=== PATIENT | female | born 1990 | race Caucasian/White ===

== ENCOUNTER 2017-03-14 23:51 | Inpatient (IN) ==
[2017-03-15] MEDS ORDERED: SODIUM CHLORIDE 0.9% 1,000 ML IV STA ×2 (00:40→02:03)
[2017-03-15 00:57] LABS: Basophils % 0.2 % (0.0-0.8); Eosinophils # 0.1 10*3/uL (0.0-0.87); Eosinophils % 0.8 % (0.00-10.9); Hematocrit 37.1 VOL% (35.7-47.0); Hemoglobin 12.7 GM/DL (12.0-16.0); Immature Granulocytes % 0.2 %; Immature Granulocytes Absolute 0.02 #; Lymphocytes # 3.1 10*3/uL (1.4-4.0); Lymphocytes % 34.4 % (21.3-54.2); Mean Corpuscular HGB Conc 34.2 GM/DL (32-36); Mean Corpuscular Hemoglobin 29 PG (27-34); Mean Corpuscular Volume 84.9 FL (87-102); Mean Platelet Volume 9.8 FL (9.6-12.0); Monocytes # 0.5 10*3/uL (0.11-0.8); Monocytes % 5.2 % (1.7-12.7); Neutrophils # 5.4 10*3/uL (1.4-7.4); Neutrophils % 59.2 % (38.7-73.9); Platelet Count 165 T/CUMM (130-400); Red Blood Count 4.37 MC/CUMM (3.8-5.5); Red Cell Distribution Width 12.4 % (9.3-17.3); White Blood Count 9.1 T/CUMM (4-12)
[2017-03-15 01:13] LABS: D-Dimer <= 0.5 MG/L FEU; INR 1.1; PT Patient Result 11.5 SECS
[2017-03-15 01:13] LABS: Barbiturates Screen,Urine Negative (Negative); Benzodiazepines Screen,Urine Negative (Negative); Cannabinoid Screen,Urine Negative (Negative); Opiate Screen,Urine Negative (Negative); Phencyclidine Screen,Urine Negative (Negative)
--- NOTE | 2017-03-15 01:13 | EKG Report ---
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
[2017-03-15 01:18] LABS: Amorphous Crystals,Urine Occasional /HPF (Few); Apearance,Urine CLOUDY (Clear); Bilirubin,Urine Negative (Negative); Blood, Urine Small mg/dL (Negative); Glucose,Urine (UA) Negative (Negative); Ketones,Urine Negative (Negative); Mucus,Urine Occasional /LPF (Occasional); Nitrite,Urine Positive (Negative); Protein,Urine 30 MG/DL; RBC,Urine 68 /HPF (0-4); Squamous Epithelial Cell,Urine Occasional /HPF (0-10); Urine Color Amber (Yellow); WBC,Urine 49 /HPF (0-6)
[2017-03-15 01:41] LABS: Alanine Aminotransferase 27 U/L (13-56); Albumin 4.1 G/DL (3.4-5.0); Alkaline Phosphatase 83 U/L (45-117); Aspartate Amino Transferase 14 U/L (0-37); Blood Urea Nitrogen 11 MG/DL (7-18); Calcium 8.8 MG/DL (8.5-10.1); Glucose 96 MG/DL (74-106); Magnesium 2.1 MG/DL (1.8-2.4); Osmolality,Calculated 279.3 MOS/KG (273-304); Potassium 3.8 MMOL/L (3.5-5.1); Sodium 141 MMOL/L (136-145)
[2017-03-15] MEDS ORDERED: SODIUM CHLORIDE 0.9% 100 ML IV ONE (01:58)
[2017-03-15] MEDS ORDERED: cefTRIAXone 1,000 MG VIAL ONE (01:58)
--- NOTE | 2017-03-15 01:58 | Emergency Department Note ---
Liana Boston Emily, am scribing for, and in the presence of, Gee Greenwood MD 01: 02. Timo Boston Charles R, MD, personally performed the services described in this documentation, ascribed by Alina Gaines in my presence, and it is both accurate and complete . Arrival - Arrival Chief Complaint: Abdominal / Flank Pain Stated Complaint: poss. kidney stones ED Nursing Triage Note: C/O DIZZINESS WITH LOW BLOOD PRESSURE AND PASSING BLOOD CLOTS EARLIER. PT WAS SEEN AT [facility]LIER THIS EVENING Mode of Arrival: Ambulatory Limitations: No Limitations Source: Patient Time Seen by Provider: 03/15/17 00:11 - History of Present Illness HPI Narrative: Pt is a 27 y/o female who came to ED with c/o dizziness and passing blood clots vaginally that started yesterday. Pt reports having full hysterectomy by robotics at the end of 2015. Pt works [employer] when she had syncopal episode earlier yesterday, but co worker caught her before fall. Pt notes vision went black during episode and low BP in the 80's. She states she went to [facility], and seen by Dr. Mendez, in which thought was kidney issue with GFR of 90. Pt's OBGYN is Dr. Aguayo, in which was cardiac rehabilitation specialist at [facility], per pt. Pt has two kids 4& 5 , and put on bed rest during pregnancies due to endometriosis which lead to hysterectomy but has not followed up with [facility] since. Pt reports having abdomen pain that started after visit with Vanessa yesterday, and having urinary frequency but plenty of output that has been red urine with clots. She states past 2 weeks when waking up to getting out of bed, she has to ease up and getting her vision focused, to keep from staying blurry. Pt describes this dizziness as "heaviness and swaying" sensation that does not go away fast, and has been chewing ice at night, more than usual. Pt states weight loss of 10 lbs in past 2 months unintentionally, but denies diet pills or new medications started recently. Onset (ago): day(s) Consistency: constant Severity: mild, moderate Severity scale (1-10): 4 Quality: other Date of Last Menstrual Period: HYST Allergies/Adverse Reactions: Allergies Allergy/AdvReac Type Severity Reaction Status Date / Time latex Allergy RASH Verified 03/14/17 23:54 Home Medications: Home Medications Medication Instructions Recorded Confirmed Type Meclizine [Antivert] 25 mg PO QID PRN #20 tablet 03/09/17 Rx Ondansetron [Ondansetron Odt] 4 mg PO Q4H PRN #20 tab.rapdis 03/09/17 Rx Review of System - Review of System 12 point system: reviewed and no additional remarkable complaints except as stated - Review of System Constitutional: Present: weight loss (10 lbs). Absent: fever Eyes: Present: vision change (no vision and/or blurred vision) Respiratory: Absent: respiratory distress Cardiovascular: Present: syncope (second). Absent: chest pain Gastrointestinal: Absent: abdominal pain Neurological: Present: other (heaviness; dizziness - doesn't go away fast ). Absent: headache, confusion Medical,Surgical,& Family Hx - Medical History Medical History: noncontributory Respiratory: History of: Asthma Musculoskeletal: History of: Back/Neck Problems - Surgical History HEENT Surgeries: Surgical HX of: Tonsilectomy & Adenoidectomy Reproductive Surgeries: Surgical HX of;: Section, Dilation and Curettage, Hysterectomy - Family History Family History: Reports;: Family Cancer, Family Diabetes - Social History Smoking Status: Never smoker Frequency of Alcohol Use: None Type of Drug Use: None Functional capacity: independent ambulation Exam Vital Signs: Vital Signs Temperature 97.6 F 03/15/17 00:07 Pulse Rate 86 03/15/17 00:07 Respiratory Rate 18 03/15/17 00:07 Blood Pressure 119/76 03/15/17 00:07 O2 Sat by Pulse Oximetry 100 03/14/17 23:54 - General General appearance: alert, in no apparent distress - Head Head exam: Present: atraumatic, normocephalic - Eye Eye exam: Present: PERRL, EOMI - ENT ENT exam: Present: mucous membranes moist. Absent: mucous membranes dry - Neck Neck exam: Present: full ROM. Absent: tenderness - Chest Chest inspection: Present: symmetric chest wall rise. Absent: tenderness - Respiratory Respiratory exam: Present: normal lung sounds bilaterally. Absent: respiratory distress - Cardiovascular Cardiovascular exam: Present: regular rate, normal rhythm, normal heart sounds - Abdominal Exam Abdominal exam: Present: soft. Absent: distention, tenderness, guarding, rebound - Extremities Exam Extremities exam: Present: full ROM, normal capillary refill, other ( fingernails bitten to the core). Absent: tenderness, pedal edema - Back Exam Back exam: Present: full ROM. Absent: tenderness - Neurological Exam Neurological exam: Present: alert, oriented X3, CN II-XII intact. Absent: motor sensory deficit - Psychiatric Psychiatric exam: Present: normal affect, normal mood - Skin Skin exam: Present: warm, dry Course - Consultations Consultation #1: Hospitalist will admit patient Time: 01:57 Results - Labs CBC & BMP: 03/15/17 00:34 03/15/17 00:34 Lab Results: I have reviewed the patients labs Labs: Laboratory Tests 03/15/17 03/15/17 00:34 01:02 MCV 84.9 L Urine Color Yvonne Urine Blood Small Urine Nitrate Positive H Urine Urobilinogen 4.0 H Urine Leukocytes Moderate H Laboratory Tests 03/15/17 01:02 Ur Specific [place] 1.020 Urine Protein 30 Urine RBC 68 Urine WBC 49 Ur Squamous Epith Cells Occasional Amorphous Crystals Occasional Urine Mucus Occasional Laboratory Tests 03/15/17 00:34 GFR Calculation 88 Serum Alcohol < 15 L Disposition Clinical Impression: Near syncope, Constipation, Abdominal pain, UTI (urinary tract infection), Dizziness, Sepsis Case discussed with: patient, patient's family Disposition: Still a Patient Condition: Stable Time of Disposition: 01:58
[2017-03-15] MEDS ORDERED: cefTRIAXone 1,000 MG in SODIUM CHLORIDE 0.9% 100 ML IV STA ×2 (02:03→02:32)
[2017-03-15] MEDS ORDERED: ZALEPLON 5 MG CAPSULE PO PRN (02:32)
--- NOTE | 2017-03-15 02:37 | Hospitalist History & Physical ---
Assessment and Plan (1) Orthostatic hypotension Status: Acute Current Visit: Yes (2) Near syncope Status: Acute Current Visit: Yes (3) Dizziness Status: Acute Current Visit: Yes (4) UTI (urinary tract infection) Status: Acute Assessment and plan: Our plan for this patient will be admission to the hospital. We are going to put her on IV Rocephin and culture her urine. Going to give her a fluid bolus and maintenance fluids. Recheck labs in the morning. And check orthostatic vital signs on her in the morning. Current Visit: Yes History of Present Illness Chief complaint: Dizziness hematuria and low blood pressure History of present illness: Ms. Rucker is a 27 year old female with past medical history significant for asthma who presents to our ER tonight. She has been experiencing some dizzy spells and near syncopal episodes for the last several days. She has been passing some blood in her urine. She thought she was passing blood clots out of her vagina but she had a hysterectomy and went to her PCP today who tried to schedule her to see her GARMENT TAG STRINGER but she ultimately ended up coming to our hospital instead of rash. 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 Patient was found to have a hemorrhagic cystitis and I was consulted to admit her. Has been experiencing some orthostatic hypotension while in the emergency room Home Medications Medication Instructions Recorded Confirmed Type No Known Home Medications [No 03/15/17 03/15/17 History Known Home Medications] Allergies Allergy/AdvReac Type Severity Reaction Status Date / Time latex Allergy RASH Verified 03/14/17 23:54 Medical,Surgical,& Family Hx - Medical History Respiratory: History of: Asthma Musculoskeletal: History of: Back/Neck Problems - Surgical History HEENT Surgeries: Surgical HX of: Tonsilectomy & Adenoidectomy Reproductive Surgeries: Surgical HX of;: Section, Dilation and Curettage, Hysterectomy - Family History Family History: Reports;: Family Cancer, Family Diabetes - Social History Smoking Status: Never smoker Frequency of Alcohol Use: None Type of Drug Use: None 12 point system: reviewed and no additional remarkable complaints except as stated Exam - Constitutional Vitals: - General General appearance: alert, in no apparent distress - Head Head exam: Present: atraumatic, normocephalic - Eye Eye exam: Present: PERRL, EOMI - ENT ENT exam: Present: mucous membranes moist. - Neck Neck exam: Present: full ROM. - Chest Chest inspection: Present: symmetric chest wall rise. - Respiratory Respiratory exam: Present: normal lung sounds bilaterally. - Cardiovascular Cardiovascular exam: Present: regular rate, normal rhythm, normal heart sounds - Abdominal Exam Abdominal exam: Present: soft. Absent: distention, tenderness, guarding, rebound - Extremities Exam Extremities exam: No edema appreciated - Back Exam Back exam: Present: full ROM. Absent: tenderness - Neurological Exam Neurological exam: Present: alert, oriented X3, CN II-XII intact. - Psychiatric Psychiatric exam: Present: normal affect, normal mood - Skin Skin exam: Present: warm, dry Results - Labs CBC & BMP: 03/15/17 00:34 03/15/17 00:34
[2017-03-15] MEDS: ONDANSETRON 4 MG/2 ML VIAL IV PRN ×2 (03:35→19:22)
[2017-03-15] MEDS: SODIUM CHLORIDE 0.9% 1,000 ML IV SCH ×3 (03:40→19:30)
[2017-03-15 07:33] LABS: Basophils % 0.2 % (0.0-0.8); Eosinophils # 0.1 10*3/uL (0.0-0.87); Eosinophils % 1.2 % (0.00-10.9); Hematocrit 33.1 VOL% (35.7-47.0); Hemoglobin 10.9 GM/DL (12.0-16.0); Immature Granulocytes % 0.2 %; Immature Granulocytes Absolute 0.01 #; Lymphocytes # 2.3 10*3/uL (1.4-4.0); Lymphocytes % 40.6 % (21.3-54.2); Mean Corpuscular HGB Conc 32.9 GM/DL (32-36); Mean Corpuscular Hemoglobin 29 PG (27-34); Mean Corpuscular Volume 87.3 FL (87-102); Mean Platelet Volume 10.4 FL (9.6-12.0); Monocytes # 0.3 10*3/uL (0.11-0.8); Monocytes % 5.1 % (1.7-12.7); Neutrophils % 52.7 % (38.7-73.9); Platelet Count 138 T/CUMM (130-400); Red Blood Count 3.79 MC/CUMM (3.8-5.5); Red Cell Distribution Width 12.7 % (9.3-17.3); White Blood Count 5.7 T/CUMM (4-12)
--- NOTE | 2017-03-15 07:54 | XRay Report ---
XR abdomen 2V Indication: Generalized abdominal pain Comparison: None Technique: Frontal views of the abdomen in the supine and upright position. Findings: Nonspecific nonobstructive bowel gas pattern. Osseous structures demonstrate no acute abnormality. Lung bases clear. IMPRESSION: No acute abnormality demonstrated. PROCEDURE INTERPRETED AT [facility] DEPARTMENT OF RADIOLOGY Final Report Signed by: Dr Fadi Aguayo
--- NOTE | 2017-03-15 08:04 | XRay Report ---
XR chest 2V Indication: SOB Comparison: Chest x-ray dated March 09, 2017 Technique: Frontal and lateral views of the chest Findings: Heart size appears within normal limits. No focal consolidation, pleural effusion, or pneumothorax. Osseous and surrounding soft tissue structures appear grossly unchanged. IMPRESSION: No acute cardiopulmonary process demonstrated. PROCEDURE INTERPRETED AT [facility] DEPARTMENT OF RADIOLOGY Final Report Signed by: Dr Fadi Aguayo
[2017-03-15 08:07] LABS: Bilirubin,Total 0.7 MG/DL (0.2-1.0); Calcium 7.4 MG/DL (8.5-10.1); Potassium 4.6 MMOL/L (3.5-5.1); Total Protein 5.3 G/DL (6.4-8.3)
[2017-03-15] MEDS: PANTOPRAZOLE 40 MG TABLET PO SCH (09:00)
[2017-03-15] MEDS: LACTULOSE 20 GM/30 ML UDCUP PO PRN (09:03)
[2017-03-15] MEDS: MECLIZINE 25 MG TABLET PO PRN (11:33)
[2017-03-16] MEDS: cefTRIAXone 1,000 MG in SODIUM CHLORIDE 0.9% 100 ML IV SCH (03:22)
[2017-03-16] MEDS: SODIUM CHLORIDE 0.9% 1,000 ML IV SCH ×3 (03:22→17:41)
[2017-03-16] MEDS: PANTOPRAZOLE 40 MG TABLET PO SCH (08:42)
--- NOTE | 2017-03-16 12:59 | Hospitalist Progress Note ---
Assessment and Plan (1) UTI (urinary tract infection) Status: Acute Assessment and plan: UC grew gram negative Rods Plan continue with IV antibiotics will get BC Current Visit: Yes (2) Dizziness Status: Acute Assessment and plan: will continue with IVF, meclizine prn and get PT consult Current Visit: Yes Hospitalist: Subjective Interval history: Patient seen this am. She gets dizzy each time she changes her position too quickly. Exam - Constitutional Vitals: Period Temp Pulse Resp BP Sys/Brasher Pulse Ox Last 24 Hr 97.1 F-98.7 F 51-73 16-20 84-101/49-69 98-100 General appearance: no acute distress - Head Head exam: Present: normal inspection - Respiratory Respiratory exam: Present: clear to auscultation bilaterally - Cardiovascular Cardiovascular exam: Present: regular rate and rhythm - GI/Abdominal GI/Abdominal exam: Present: normal bowel sounds - Extremities Exam Extremities exam: Present: normal inspection Results - Labs CBC & BMP: 03/15/17 05:36 03/15/17 05:36 Lab Results: I have reviewed the past 24 hour labs
[2017-03-16] MEDS: MECLIZINE 25 MG TABLET PO PRN (14:09)
[2017-03-16] MEDS ORDERED: ALPRAZolam 0.25 MG TABLET PO ONE (14:54)
[2017-03-16] MEDS: LACTULOSE 20 GM/30 ML UDCUP PO PRN (15:00)
[2017-03-16] MEDS: ONDANSETRON 4 MG/2 ML VIAL IV PRN (18:16)
[2017-03-17] MEDS: cefTRIAXone 1,000 MG in SODIUM CHLORIDE 0.9% 100 ML IV SCH (01:49)
[2017-03-17] MEDS: SODIUM CHLORIDE 0.9% 1,000 ML IV SCH ×4 (01:59→17:39)
[2017-03-17] MEDS: PANTOPRAZOLE 40 MG TABLET PO SCH (08:35)
[2017-03-17] MEDS: LACTULOSE 20 GM/30 ML UDCUP PO PRN (11:29)
[2017-03-17] MEDS: ONDANSETRON 4 MG/2 ML VIAL IV PRN ×2 (11:29→17:24)
[2017-03-17] MEDS: MECLIZINE 25 MG TABLET PO PRN ×2 (11:29→17:24)
[2017-03-17 11:35] LABS: Troponin I Only < 0.015 NG/ML (0.00-0.045)
--- NOTE | 2017-03-17 13:29 | Magnetic Resonance Report ---
MRI brain without contrast Indication: Syncope Comparison: None available Technique: Axial sagittal and coronal imaging of the brain is performed without contrast. T1, T2, FLAIR and diffusion weighted sequences are performed. Findings: No evidence of restricted diffusion seen. No evidence of intracranial hemorrhage, mass, mass effect or midline shift is seen. The brain parenchyma has normal signal and differentiation. The ventricles and cisterns are appropriate in caliber. Posterior fossa, mid brain and pituitary gland appear within normal limits. No evidence of cranial or skull base abnormality seen. Impression: No evidence of abnormality demonstrated PROCEDURE INTERPRETED AT [facility] DEPARTMENT OF RADIOLOGY Final Report Signed by: Dr. William López
--- NOTE | 2017-03-17 13:51 | Hospitalist Progress Note ---
Assessment and Plan (1) UTI (urinary tract infection) Status: Acute Assessment and plan: UC grew gram negative Rods Plan continue with IV antibiotics BC-no growth Current Visit: Yes (2) Dizziness Status: Acute Assessment and plan: Tilt test-negative -will get an MRI brain, TSH,cardiac enzymes. will continue with IVF, meclizine prn and get PT consult Patient requests an HIV testing-pending result Current Visit: Yes Hospitalist: Subjective Interval history: Patient seen.She feels fairly okay but still weak. Exam - Constitutional Vitals: Period Temp Pulse Resp BP Sys/Brasher Pulse Ox Last 24 Hr 97.4 F-98.4 F 57-73 16-20 83-102/50-67 99-100 General appearance: no acute distress - Head Head exam: Present: normal inspection - Respiratory Respiratory exam: Present: clear to auscultation bilaterally - Cardiovascular Cardiovascular exam: Present: regular rate and rhythm - GI/Abdominal GI/Abdominal exam: Present: normal bowel sounds - Extremities Exam Extremities exam: Present: normal inspection Results - Labs CBC & BMP: 03/15/17 05:36 03/15/17 05:36 Lab Results: I have reviewed the past 24 hour labs
[2017-03-18] MEDS: cefTRIAXone 1,000 MG in SODIUM CHLORIDE 0.9% 100 ML IV SCH (01:13)
[2017-03-18] MEDS: SODIUM CHLORIDE 0.9% 1,000 ML IV SCH ×3 (01:13→09:53)
[2017-03-18] MEDS: MECLIZINE 25 MG TABLET PO PRN (08:14)
[2017-03-18] MEDS: ONDANSETRON 4 MG/2 ML VIAL IV PRN (08:14)
[2017-03-18] MEDS: LACTULOSE 20 GM/30 ML UDCUP PO PRN (08:14)
[2017-03-18] MEDS: PANTOPRAZOLE 40 MG TABLET PO SCH (08:14)
--- NOTE | 2017-03-18 09:13 | Discharge Summary ---
<Carlos Kwan - Last Filed: 03/18/17 09:09> Hospital Course - Hospital Course Hospital Course: This patient is a 27 year old female who was admitted through the [facility] ED on 03/15/17 for dizziness, abdominal pain and near syncope. On admission, she was found to have a UTI. The patient believed she was passing blood clots through her vagina, but, on further examination no vaginal abnormalities were found. Urine culture returned positive for E. coli. She was admitted to the hospital medicine service and started on IV Rocephin 1000mg daily. Blood cultures were obtained and returned negative with no growth at day 1. The patient continued to complain of dizziness throughout her hospitalization. We continued IV fluids, meclizine PRN and consulted PT. Tilt test was negative. MRI of brain showed no evidence of intracranial abnormalities. TSH and cardiac enzymes were within normal limits. At this time, the patient has reached maximum benefit from hospitalization and is stable for discharge. Appropriate follow up instructions to follow per addendum from Dr. Cantrell. - Time spent with patient Time with patient DS: Greater than 30 minutes Discharge Plan - Discharge Data Disposition: Disch To Home/Self Care - Discharge Medications New HYDROcodone/ACETAMIN 7.5-325 [[place] 7.5-325] 1 tablet PO Q4H PRN #20 tablet PRN Reason: Pain Moderate (4-7) Meclizine [Antivert] 25 mg PO Q6H PRN #20 tablet PRN Reason: Dizziness Amoxicillin/Clav Tab [Augmentin Tab] 875 mg PO Q12H #10 tablet - Follow Up or Referral - Forms/Instructions Instructions: Meclizine (By mouth), Syncope (DC), Hypotension (DC) Exam - Constitutional Vitals: Period Temp Pulse Resp BP Sys/Brasher Pulse Ox Last 24 Hr 97.4 F-98.3 F 53-81 16-20 84-103/50-68 98-100 Discharge Results Procedures and tests throughout hospitalization: Pending Orders 03/15/17 16:57 Blood Culture Routine 03/16/17 13:22 Blood Culture Routine 03/16/17 15:05 HIV Antigen/Antibody Combo* Stat Labs on day of discharge: Preliminary micro results at discharge 03/16/17 13:22 Blood Culture - Preliminary Blood No growth at 1 day 03/16/17 13:22 Blood Culture - Preliminary Blood No growth at 1 day 03/15/17 16:57 Blood Culture - Preliminary Blood No growth at 1 day 03/15/17 16:53 Blood Culture - Preliminary Blood No growth at 1 day DS: Provider Date of admission: 03/15/17 02:00 Primary care physician: . Tona PCP Attending physician on admission: Asim Giron MD Consults: 03/16/17 08:40 Consult to Physical Therapy [CONS] Routine Reason for Physical Therapy: Other Consult Comment: TILT TEST SYNCOPE Discharging clinician: Carlos VO Expected date of discharge: 03/18/17 <Emily Cantrell - Last Filed: 03/18/17 14:12> Hospital Course - Hospital Course Hospital Course: Vital sign are stable, Her E. Coli is resistant to levaquin and Cipro. She will go home on Augmentin x5days - Time spent with patient Time with patient DS: Greater than 30 minutes (time spent:35mins) Diagnosis - Discharge Diagnosis (1) UTI (urinary tract infection) Status: Acute (2) Dizziness Status: Acute Discharge Plan - Discharge Data Condition at Discharge: Stable Discharge Diet: advance to your usual diet Activity: resume usual activities as tolerated - Forms/Instructions Additional Discharge Instructions: follow with pcp in 1week Exam - Constitutional General appearance: no acute distress - Head Head exam: Present: normal inspection - Eye Eye exam: Present: EOMI - Respiratory Respiratory exam: Present: clear to auscultation bilaterally - Cardiovascular Cardiovascular exam: Present: regular rate and rhythm - GI/Abdominal GI/Abdominal exam: Present: normal bowel sounds - Extremities Exam Extremities exam: Present: normal inspection
[2017-03-18 13:03] VITALS: BP 95/58
[2017-03-19 06:20] LABS: HIV Antigen/Antibody Result Nonreactive (Nonreactive)
== END 2017-03-18 15:02 | disposition home or self-care (01) | DRG 690 ==
LOC: N.ED 23:51 → SUATTDRO 03-15 02:00 → N.EDINP 03-15 02:00 → N.5E 03-15 02:24
PROVIDERS: ADMIT Internal Medicine; ATTEND Internal Medicine

== ENCOUNTER 2019-02-25 14:04 | Inpatient (IN) ==
[2019-02-25] MEDS ORDERED: HYDROmorphone 2 MG/1 ML VIAL IV STA (14:24)
[2019-02-25] MEDS ORDERED: SODIUM CHLORIDE 0.9% 1,000 ML IV STA (14:24)
[2019-02-25] MEDS ORDERED: ONDANSETRON 4 MG/2 ML VIAL IV STA ×2 (14:24→15:57)
[2019-02-25 14:53] LABS: Basophils % 0.3 % (0.0-0.8); Hematocrit 37.3 VOL% (35.7-47.0); Hemoglobin 12.5 GM/DL (12.0-16.0); Immature Granulocytes % 0.3 %; Immature Granulocytes Absolute 0.01 #; Lymphocytes # 0.8 10*3/uL (1.4-4.0); Lymphocytes % 21.1 % (21.3-54.2); Mean Corpuscular HGB Conc 33.5 GM/DL (32-36); Mean Corpuscular Volume 86.5 FL (87-102); Mean Platelet Volume 9.2 FL (9.6-12.0); Monocytes % 6.5 % (1.7-12.7); Neutrophils % 71.8 % (38.7-73.9); Platelet Count 147 T/CUMM (130-400); Red Blood Count 4.31 MC/CUMM (3.8-5.5); Red Cell Distribution Width 12.3 % (9.3-17.3); White Blood Count 3.7 T/CUMM (4-12)
[2019-02-25 15:12] LABS: Albumin 3.9 G/DL (3.4-5.0); Apearance,Urine Slightly Hazy (Clear); Bacteria,Urine Occasional /HPF (Few); Bilirubin,Total 0.6 MG/DL (0.2-1.0); Bilirubin,Urine Negative (Negative); Blood, Urine Negative (Negative); Calcium 7.7 MG/DL (8.5-10.1); Glucose,Urine (UA) Negative (Negative); Ketones,Urine Negative (Negative); Mucus,Urine Many /LPF (Occasional); Nitrite,Urine Negative (Negative); Osmolality,Calculated 274.5 MOS/KG (273-304); Protein,Urine Negative; RBC,Urine 3 /HPF (0-4); Total Protein 6.9 G/DL (6.4-8.3); Urine Color Yellow (Yellow); Urine Specific Gravity 1.018 (1.001-1.035); Urine Urobilinogen < 2.0 EU/DL (0.2-1.0); WBC,Urine 2 /HPF (0-6)
[2019-02-25] MEDS ORDERED: BISACODYL 5 MG TABLET PO PRN (16:04)
[2019-02-25] MEDS ORDERED: ONDANSETRON 4 MG/2 ML VIAL IV PRN (16:04)
[2019-02-25] MEDS ORDERED: KETOROLAC 15 MG/1 ML VIAL IV PRN (16:04)
[2019-02-25] MEDS ORDERED: ALBUTEROL/IPRATROPIUM 3 ML NEB RESP TX PRN (16:04)
[2019-02-25] MEDS ORDERED: KETOROLAC 30 MG/1 ML VIAL ONE (16:58)
[2019-02-25] MEDS: LACTATED RINGERS 1,000 ML IV SCH (17:06)
[2019-02-25] MEDS: PROMETHAZINE 25 MG/1 ML VIAL IM PRN (18:18)
[2019-02-25] MEDS ORDERED: KETOROLAC 15 MG/1 ML VIAL IV ONE (18:37)
[2019-02-25] MEDS ORDERED: HYDROmorphone 2 MG/1 ML VIAL IV PRN (18:38)
[2019-02-25] MEDS: ONDANSETRON 4 MG/2 ML VIAL IV PRN (21:34)
[2019-02-25] MEDS: KETOROLAC 15 MG/1 ML VIAL IV SCH (23:15)
[2019-02-26] MEDS: LACTATED RINGERS 1,000 ML IV SCH ×2 (00:51→10:58)
[2019-02-26] MEDS: PROMETHAZINE 25 MG/1 ML VIAL IM PRN ×3 (04:36→18:28)
[2019-02-26] MEDS: KETOROLAC 15 MG/1 ML VIAL IV SCH ×4 (04:38→22:30)
[2019-02-26 04:47] LABS: Basophils % 0.5 % (0.0-0.8); Eosinophils % 1.1 % (0.00-10.9); Hematocrit 31.7 VOL% (35.7-47.0); Hemoglobin 10.3 GM/DL (12.0-16.0); Lymphocytes # 1.2 10*3/uL (1.4-4.0); Lymphocytes % 62.6 % (21.3-54.2); Mean Corpuscular HGB Conc 32.5 GM/DL (32-36); Mean Corpuscular Volume 88.1 FL (87-102); Mean Platelet Volume 9.4 FL (9.6-12.0); Monocytes % 8.4 % (1.7-12.7); Neutrophils % 27.4 % (38.7-73.9); Platelet Count 120 T/CUMM (130-400); Red Cell Distribution Width 12.5 % (9.3-17.3); White Blood Count 1.9 T/CUMM (4-12)
[2019-02-26 05:01] LABS: Bilirubin,Total 0.6 MG/DL (0.2-1.0); Calcium 7.8 MG/DL (8.5-10.1); Osmolality,Calculated 284.7 MOS/KG (273-304); Total Protein 5.4 G/DL (6.4-8.3)
[2019-02-26 06:09] LABS: Eosinophils 1 % (0-10); Lymphocytes 66 % (20-55); Segmented Neutrophils 24 % (50-85)
[2019-02-26 06:11] LABS: Hypochromasia 1+; Ovalocytes 1+; Platelet Estimate Decreased; Reactive Lymphocytes 2+
[2019-02-26 06:12] LABS: Total Cells Counted 100
[2019-02-26 09:27] LABS: Basophils % 0.6 % (0.0-0.8); Eosinophils % 1.1 % (0.00-10.9); Hemoglobin 10.7 GM/DL (12.0-16.0); Lymphocytes # 0.9 10*3/uL (1.4-4.0); Lymphocytes % 47.5 % (21.3-54.2); Mean Corpuscular HGB Conc 32.4 GM/DL (32-36); Mean Platelet Volume 9.4 FL (9.6-12.0); Neutrophils % 39.8 % (38.7-73.9); Platelet Count 128 T/CUMM (130-400); Red Blood Count 3.75 MC/CUMM (3.8-5.5); Red Cell Distribution Width 12.6 % (9.3-17.3); White Blood Count 1.8 T/CUMM (4-12)
[2019-02-26 10:07] LABS: Band Neutrophils 6 % (0-10); Eosinophils 4 % (0-10); Lymphocytes 48 % (20-55); Platelet Estimate Adequate; Segmented Neutrophils 35 % (50-85); Total Cells Counted 100
[2019-02-26] MEDS: PANTOPRAZOLE 40 MG TABLET PO SCH (10:56)
[2019-02-26 17:30] LABS: PT Patient Result 11.2 SECS; Partial Thromboplastin Time 29.7 SECS (0-40)
[2019-02-26] MEDS ORDERED: SODIUM CHLORIDE 0.9% 1,000 ML IV ONE (17:31)
[2019-02-26 18:06] LABS: % Iron Saturation 17.7 % (18-50); Ferritin 66.9 ng/ml (8-252)
[2019-02-26 18:26] LABS: Folate 21.3 NG/ML (5.4-24.0); Hepatitis B Core IgM Quant < 0.05 Index; Hepatitis B Surface Ag Quant < 0.10 Index; Hepatitis B Surface Ag Result Negative (Negative); Hepatitis C Virus Ab Quant < 0.02 Index; Hepatitis C Virus Ab Result Negative (Negative); Vitamin B12 255 PG/ML (211-911)
[2019-02-26] MEDS ORDERED: MULTIVITAMIN INJ 10 ML in DEXTROSE 5% NACL 0.9% 1,000 ML IV SCH (20:00)
[2019-02-26] MEDS: PIPERACILLIN/TAZOBACTAM 3,375 MG in SODIUM CHLORIDE 0.9% 100 ML IV SCH (20:11)
[2019-02-26] MEDS: ONDANSETRON 4 MG/2 ML VIAL IV PRN (21:47)
[2019-02-27] MEDS: PIPERACILLIN/TAZOBACTAM 3,375 MG in SODIUM CHLORIDE 0.9% 100 ML IV SCH ×3 (02:42→17:23)
[2019-02-27] MEDS: KETOROLAC 15 MG/1 ML VIAL IV SCH ×4 (04:41→22:16)
[2019-02-27] MEDS: ONDANSETRON 4 MG/2 ML VIAL IV PRN ×2 (05:41→08:01)
[2019-02-27 05:44] LABS: Basophils % 0.4 % (0.0-0.8); Eosinophils # 0.1 10*3/uL (0.0-0.87); Eosinophils % 2.9 % (0.00-10.9); Hematocrit 33.4 VOL% (35.7-47.0); Hemoglobin 10.8 GM/DL (12.0-16.0); Lymphocytes # 1.3 10*3/uL (1.4-4.0); Lymphocytes % 51.7 % (21.3-54.2); Mean Corpuscular HGB Conc 32.3 GM/DL (32-36); Mean Corpuscular Volume 87.7 FL (87-102); Mean Platelet Volume 9.6 FL (9.6-12.0); Monocytes % 9.1 % (1.7-12.7); Neutrophils % 35.9 % (38.7-73.9); Platelet Count 132 T/CUMM (130-400); Red Blood Count 3.81 MC/CUMM (3.8-5.5); Red Cell Distribution Width 12.7 % (9.3-17.3); White Blood Count 2.4 T/CUMM (4-12)
[2019-02-27 05:58] LABS: Calcium 8.1 MG/DL (8.5-10.1); Osmolality,Calculated 281.8 MOS/KG (273-304)
[2019-02-27 06:14] LABS: Eosinophils 3 % (0-10); Lymphocytes 57 % (20-55); Segmented Neutrophils 34 % (50-85); Total Cells Counted 100
[2019-02-27 06:15] LABS: Polychromasia Few
[2019-02-27] MEDS: CYANOCOBALAMIN 1000 MCG/1 ML VIAL IM SCH (09:06)
[2019-02-27] MEDS: LACTATED RINGERS 1,000 ML IV SCH ×3 (09:07→17:23)
[2019-02-27] MEDS: PANTOPRAZOLE 40 MG TABLET PO SCH (09:10)
[2019-02-27] MEDS: FILGRASTIM-SNDZ 300 MCG/0.5 ML SYRINGE SUBCUT SCH (15:15)
[2019-02-27] MEDS ORDERED: SCOPOLAMINE 1.5 MG PATCH TRANSDERM STA (19:39)
[2019-02-28] MEDS: PIPERACILLIN/TAZOBACTAM 3,375 MG in SODIUM CHLORIDE 0.9% 100 ML IV SCH ×3 (01:35→17:22)
[2019-02-28] MEDS: KETOROLAC 15 MG/1 ML VIAL IV SCH ×5 (04:08→23:49)
[2019-02-28 04:27] LABS: Basophils % 0.1 % (0.0-0.8); Eosinophils # 0.1 10*3/uL (0.0-0.87); Eosinophils % 0.8 % (0.00-10.9); Hematocrit 34.3 VOL% (35.7-47.0); Hemoglobin 11.4 GM/DL (12.0-16.0); Immature Granulocytes % 0.5 %; Immature Granulocytes Absolute 0.07 #; Lymphocytes # 1.8 10*3/uL (1.4-4.0); Lymphocytes % 12.6 % (21.3-54.2); Mean Corpuscular HGB Conc 33.2 GM/DL (32-36); Mean Corpuscular Volume 86.4 FL (87-102); Mean Platelet Volume 9.8 FL (9.6-12.0); Monocytes % 4.4 % (1.7-12.7); Neutrophils % 81.6 % (38.7-73.9); Platelet Count 153 T/CUMM (130-400); Red Blood Count 3.97 MC/CUMM (3.8-5.5); Red Cell Distribution Width 12.4 % (9.3-17.3)
[2019-02-28 05:03] LABS: Albumin 3.4 G/DL (3.4-5.0); Bilirubin,Total 0.8 MG/DL (0.2-1.0); Calcium 8.3 MG/DL (8.5-10.1); Total Protein 6.1 G/DL (6.4-8.3)
[2019-02-28] MEDS: ACETAMINOPHEN 325 MG TABLET PO PRN (05:21)
[2019-02-28] MEDS ORDERED: FAMOTIDINE 20 MG TABLET PO ONE (06:00)
[2019-02-28] MEDS: PANTOPRAZOLE 40 MG TABLET PO SCH (08:04)
[2019-02-28] MEDS ORDERED: LIDOCAINE 1%/EPI INJ 20 ML VIAL ONE (08:08)
[2019-02-28] MEDS ORDERED: TISSUE ADHESIVE 1 EACH APPLICATOR TOP ONE (09:11)
[2019-02-28] MEDS: LACTATED RINGERS 1,000 ML IV SCH ×4 (09:32→16:26)
[2019-02-28] MEDS ORDERED: ONDANSETRON 4 MG/2 ML VIAL IV PRN (09:52)
[2019-02-28] MEDS: FILGRASTIM-SNDZ 300 MCG/0.5 ML SYRINGE SUBCUT SCH (09:59)
[2019-02-28] MEDS ORDERED: HYDROmorphone 2 MG/1 ML VIAL ONE (10:02)
[2019-02-28] MEDS ORDERED: ONDANSETRON 4 MG/2 ML VIAL ONE ×2 (10:02→12:00)
[2019-02-28] MEDS: HYDROmorphone 2 MG/1 ML VIAL IV PRN ×2 (10:06→10:11)
[2019-02-28] MEDS: CYANOCOBALAMIN 1000 MCG/1 ML VIAL IM SCH (10:42)
[2019-02-28] MEDS: ONDANSETRON 4 MG/2 ML VIAL IV PRN ×2 (11:42→17:33)
[2019-02-28] MEDS ORDERED: SEVOFLURANE 1 UNIT/15 MINUTE INH ONE (11:57)
[2019-02-28] MEDS ORDERED: MIDAZOLAM 2 MG/2 ML VIAL ONE (11:58)
[2019-02-28] MEDS ORDERED: DEXAMETHASONE 4 MG/1 ML VIAL ONE (11:59)
[2019-02-28] MEDS ORDERED: PROPOFOL 200 MG/20 ML VIAL IV ONE (11:59)
[2019-02-28] MEDS ORDERED: ACETAMINOPHEN 1,000 MG/100 ML VIAL IV ONE (12:00)
[2019-02-28] MEDS ORDERED: ROCURONIUM 100 MG/10 ML VIAL IV ONE (12:00)
[2019-02-28] MEDS ORDERED: KETOROLAC 30 MG/1 ML VIAL ONE (12:00)
[2019-02-28] MEDS ORDERED: NEOSTIGMINE 10 MG/10 ML VIAL ONE (12:00)
[2019-02-28] MEDS ORDERED: GLYCOPYRROLATE 0.4 MG/2 ML VIAL ONE (12:00)
[2019-02-28] MEDS ORDERED: diphenhydrAMINE 50 MG/1 ML VIAL IV ONE (12:54)
[2019-02-28] MEDS ORDERED: MORPHINE 4 MG/1 ML VIAL IV PRN (12:59)
[2019-02-28] MEDS: PROMETHAZINE 25 MG/1 ML VIAL IM PRN (14:59)
[2019-03-01] MEDS: HYDROmorphone 2 MG/1 ML VIAL IV PRN ×4 (03:27→23:13)
[2019-03-01] MEDS: ONDANSETRON 4 MG/2 ML VIAL IV PRN ×4 (03:27→23:13)
[2019-03-01] MEDS: PIPERACILLIN/TAZOBACTAM 3,375 MG in SODIUM CHLORIDE 0.9% 100 ML IV SCH ×3 (03:28→17:25)
[2019-03-01] MEDS: LACTATED RINGERS 1,000 ML IV SCH ×3 (03:33→19:25)
[2019-03-01] MEDS: KETOROLAC 15 MG/1 ML VIAL IV SCH ×4 (05:54→23:03)
[2019-03-01 06:52] LABS: Basophils % 0.1 % (0.0-0.8); Hematocrit 32.8 VOL% (35.7-47.0); Hemoglobin 11.1 GM/DL (12.0-16.0); Immature Granulocytes % 0.9 %; Immature Granulocytes Absolute 0.12 #; Lymphocytes % 14.3 % (21.3-54.2); Mean Corpuscular HGB Conc 33.8 GM/DL (32-36); Mean Corpuscular Volume 85.9 FL (87-102); Mean Platelet Volume 9.7 FL (9.6-12.0); Monocytes % 4.8 % (1.7-12.7); Neutrophils % 79.9 % (38.7-73.9); Platelet Count 177 T/CUMM (130-400); Red Blood Count 3.82 MC/CUMM (3.8-5.5); Red Cell Distribution Width 12.5 % (9.3-17.3); White Blood Count 13.7 T/CUMM (4-12)
[2019-03-01 07:21] LABS: Calcium 8.3 MG/DL (8.5-10.1); Osmolality,Calculated 277.3 MOS/KG (273-304)
[2019-03-01] MEDS: CYANOCOBALAMIN 1000 MCG/1 ML VIAL IM SCH ×2 (08:49→09:01)
[2019-03-01] MEDS: PANTOPRAZOLE 40 MG TABLET PO SCH (08:50)
[2019-03-01] MEDS: SIMETHICONE CHEW 80 MG TABLET PO PRN ×2 (13:12→19:12)
[2019-03-01] MEDS ORDERED: BISACODYL 10 MG SUPP RECTAL ONE (21:27)
[2019-03-02] MEDS: PIPERACILLIN/TAZOBACTAM 3,375 MG in SODIUM CHLORIDE 0.9% 100 ML IV SCH ×2 (01:17→10:26)
[2019-03-02] MEDS: ONDANSETRON 4 MG/2 ML VIAL IV PRN ×2 (03:57→10:24)
[2019-03-02] MEDS: HYDROmorphone 2 MG/1 ML VIAL IV PRN (04:04)
[2019-03-02] MEDS: LACTATED RINGERS 1,000 ML IV SCH (04:07)
[2019-03-02] MEDS: SIMETHICONE CHEW 80 MG TABLET PO PRN ×2 (04:41→10:24)
[2019-03-02] MEDS: KETOROLAC 15 MG/1 ML VIAL IV SCH ×2 (04:41→10:27)
[2019-03-02 08:16] VITALS: BP 97/49
[2019-03-02] MEDS: PANTOPRAZOLE 40 MG TABLET PO SCH (09:30)
[2019-03-02 10:20] LABS: Basophils % 0.2 % (0.0-0.8); Eosinophils # 0.1 10*3/uL (0.0-0.87); Eosinophils % 1.4 % (0.00-10.9); Hematocrit 32.5 VOL% (35.7-47.0); Hemoglobin 10.5 GM/DL (12.0-16.0); Immature Granulocytes % 0.2 %; Immature Granulocytes Absolute 0.01 #; Lymphocytes # 2.3 10*3/uL (1.4-4.0); Lymphocytes % 39.2 % (21.3-54.2); Mean Corpuscular HGB Conc 32.3 GM/DL (32-36); Mean Corpuscular Volume 88.3 FL (87-102); Mean Platelet Volume 9.3 FL (9.6-12.0); Monocytes % 5.3 % (1.7-12.7); Neutrophils % 53.7 % (38.7-73.9); Platelet Count 143 T/CUMM (130-400); Red Blood Count 3.68 MC/CUMM (3.8-5.5); Red Cell Distribution Width 12.6 % (9.3-17.3); White Blood Count 5.9 T/CUMM (4-12)
[2019-03-02] MEDS: ACETAMINOPHEN 325 MG TABLET PO PRN (11:28)
== END 2019-03-02 11:54 | disposition home or self-care (01) | DRG 418 ==
LOC: N.ED 14:04 → N.EDINP 14:04 → SUATTDRO 16:04 → N.3E 16:38 → SUATTDRO 02-27 14:26
PROVIDERS: ADMIT Surgery; ATTEND Internal Medicine
PROC: LAPCHOL (2019-02-28 08:24)